=== PATIENT | male | born 1995 | race Caucasian/White ===

== ENCOUNTER 2018-06-13 19:34 | Emergency (ER) | payer OTHER ==
[2018-06-13] MEDS ORDERED: KETOROLAC 30 MG/1 ML SDV IM ONE (19:52)
--- NOTE | 2018-06-13 19:55 | EDPHY ---
H & P Stated Complaint: right shoulder injury Time Seen by Provider: 06/13/18 19:45 HPI/ROS: CHIEF COMPLAINT: Right shoulder pain HISTORY OF PRESENT ILLNESS: 22-year-old male via private vehicle complaining of acute right shoulder pain after she is playing capture the flag and other individual ran into his right shoulder. Unable to move secondary to pain. Denies: Paresthesia, head injury, midline C-spine pain for chest pain, dyspnea , abdominal pain. PRIMARY CARE PROVIDER: REVIEW OF SYSTEMS: 10 systems reviewed and negative with the exception of the elements mentioned in the history of present illness PAST MEDICAL/SURGICAL HISTORY: no anticoagulant use, no relevant medical/ surgical history SOCIAL HISTORY: denies alcohol use at time of incident PHYSICAL EXAM 1) GENERAL: Well-developed, well-nourished, alert and oriented. Appears uncomfortable. 2) HEAD: Normocephalic, atraumatic 3) HEENT: Pupils equal, round, reactive to light bilaterally. N. 4) NECK: No cervical collar is on. Posterior cervical spine is nontender, no stepoff, no effusion. Full range of motion which does not elicit any midline cervical spine pain, no posterior midline tenderness, no step-off. 5) LUNGS: Clear to auscultation bilaterally, no wheezes, no rhonchi, no retractions. No obvious signs of trauma. No chest wall pain. No flaring, no grunting. Moving symmetrically. No crepitus. 6) HEART: [Regular rate and rhythm, 7) ABDOMEN: No guarding, no rebound, no focal tenderness, no peritoneal signs, no signs of trauma, no ecchymosis 8) MUSCULOSKELETAL: Right upper extremity: Due to patient's body habitus it is challenging to appreciate anatomic shoulder landmarks. Guarding right shoulder, tender to palpation right shoulder brisk pulses distally with normal color and temperature distally. 9) BACK: No midline vertebral tenderness, no fluctuance, no step-off, no obvious trauma, no visual or palpable abnormality. 10) SKIN: No laceration. No abrasion DIFFERENTIAL DIAGNOSIS: In no particular order including but not limited fracture, sprain, strain, dislocation - Personal History Current Tetanus Diphtheria and Acellular Pertussis (TDAP): Yes - Medical/Surgical History Hx Asthma: No Hx Chronic Respiratory Disease: No Hx Diabetes: No Hx Cardiac Disease: No Hx Renal Disease: No Hx Cirrhosis: No Hx Alcoholism: No Hx HIV/AIDS: No Hx Splenectomy or Spleen Trauma: No - Social History Smoking Status: Never smoked Constitutional: Initial Vital Signs Temperature (C) 36.7 C 06/13/18 19:38 Heart Rate 71 06/13/18 19:38 Respiratory Rate 20 06/13/18 19:38 Blood Pressure 128/76 H 06/13/18 19:38 O2 Sat (%) 97 06/13/18 19:38 O2 Delivery Mode Room Air O2 (L/minute) 2 Allergies/Adverse Reactions: acetaminophen [From Vicodin] Allergy (Verified 06/13/18 19:37) hydrocodone [From Vicodin] Allergy (Verified 06/13/18 19:37) Medical Decision Making - Diagnostics Imaging Results: Imaging Impressions Shoulder X-Ray 06/13/18 19:46 Impression: Anterior shoulder dislocation. Shoulder X-Ray 06/13/18 20:37 Impression: Good alignment. No fracture. Images reviewed myself ED Course/Re-evaluation: Re-evaluation with serial exams. Patient's shoulder was reduced in the emergency department by myself, splinted with a sling. Informed the limitations of x-ray. Recommended follow up with Orthopedics and given this referral information. He feels comfortable being discharged. My usual and customary orthopedic precautions and instructions provided. I saw this patient independently based on established practice protocols. Care of patient under supervision of secondary supervising physician Dr Craft with whom I discussed case. - Data Points Medications Given: Discontinued Medications Fentanyl (Sublimaze) 100 mcg IVP EDNOW ONE Stop: 06/13/18 20:20 Last Admin: 06/13/18 20:27 Dose: 100 mcg Ketorolac Tromethamine (Toradol) 60 mg IM EDNOW ONE Stop: 06/13/18 19:53 Last Admin: 06/13/18 19:55 Dose: 60 mg Departure - Departure Disposition: Home, Routine, Self-Care Clinical Impression: Dislocation of right shoulder joint Qualifiers: Encounter type: initial encounter Qualified Code(s): S43.004A - Unspecified dislocation of right shoulder joint, initial encounter Instructions: Shoulder Dislocation (ED) Additional Instructions: Return to the ER immediately if you experience discoloration, have worsening pain, numbness, tingling, or any other symptoms that concern you. If you received x-rays in the emergency department today, be advised, that ligamentous , tendon, muscular, and other non-bony injury cannot be fully ruled out. Try to keep your affected extremity elevated above the level of your chest, and keep cold packs on the affected area, for the next 48 hours. Adult Pain & Fever Control: We recommend Acetaminophen (Tylenol) and Ibuprofen (Motrin,Advil) for pain and fever control. When fever is high or pain severe, both drugs can be used at the same time, but at different intervals. Please note the time differences. Your dose is: Acetaminophen 650mg every 4 to 6 hours Ibuprofen 600mg every 6 hours with food OR Note: do not take Acetaminophen with Hydrocodone (Vicodin, Lortab) or Oycodone (Percocet). These medications also contain Acetaminophen. No more than 3000mg of Acetaminophen should be taken in 24 hours (for an adult). Referrals: Bravo Fonseca MD [Medical Doctor] - 2-3 days, call for appt. (Dr. Bravo Fonseca is an orthopedic doctor)
[2018-06-13] MEDS ORDERED: fentaNYL 100 MCG/2 ML INJ IVP ONE (20:19)
[2018-06-13 20:30] VITALS: BP 102/69
== END 2018-06-13 21:33 | disposition home or self-care (01) ==
LOC: EEVIPCON 19:34
PROC: 0RSJXZZ Reposition Right Shoulder Joint, External Approach (ICD-10-PCS; principal; 2018-06-13)
DX: S43.004A Unspecified dislocation of right shoulder joint, initial encounter (principal); W50.0XXA Accidental hit or strike by another person, initial encounter; Y93.69 Activity, other involving other sports and athletics played as a team or group; Y99.9 Unspecified external cause status; Y92.9 Unspecified place or not applicable
CPT/HCPCS: 96374; A4565; J1885; J3010